=== PATIENT | male | born 1940 | race Caucasian/White ===

== ENCOUNTER 2017-04-06 06:41 | Inpatient (IN) | payer MEDICARE ==
--- NOTE | 2017-03-16 10:11 | HP ---
HISTORY AND PHYSICAL: DATE OF SURGERY: 04/06/17 DATE OF OFFICE VISIT: 03/15/17 SURGEON: Kimi Moore MD PROCEDURE: Left total knee arthroplasty. CHIEF COMPLAINT: Left knee pain. HISTORY OF PRESENT ILLNESS: Mr. Baugh is a 76-year-old gentleman with complaints of left knee pain secondary to advanced osteoarthritis. He has failed conservative management. He has elected to proceed with the left total knee arthroplasty which is scheduled for 04/06/[address] Moore. PAST MEDICAL HISTORY: Hypertension. PAST SURGICAL HISTORY: Right total knee arthroplasty and skin graft from the left upper extremity. CURRENT MEDICATIONS: None. ALLERGIES: None. FAMILY HISTORY: Denies. SOCIAL HISTORY: He is 76-year-old gentleman. He lives with his . He does not smoke or use drugs. He uses occasional alcohol. REVIEW OF SYSTEMS: A complete 14-point review of systems was reviewed with the patient, was all negative and noncontributory PHYSICAL EXAMINATION GENERAL: He is well developed, well nourished, in no acute distress. VITAL SIGNS: He stands 6 feet tall, weighs 212 pounds. His blood pressure is 173/69, his heart rate is 61. HEENT: Normocephalic, atraumatic. NECK: Supple, no palpable lymph nodes. CARDIO: Regular rate and rhythm. Strong S1, S2. PULMONARY: His lungs are clear to auscultation bilaterally. ABDOMEN: Soft, nontender, nondistended. NEUROLOGIC: He is alert and oriented x3. Cranial nerves II through XII are intact. MUSCULOSKELETAL: Left lower extremity, the skin is intact. There are no open wounds or abrasions. He has tenderness over the medial lateral joint line, 15 degrees flexion contracture, 120 degrees flexion. No varus or valgus instability. His lower extremity muscle group strength is intact at 5/5. He has 2+ dorsalis pedis pulses and intact sensation. ASSESSMENT AND PLAN: Mr. Baugh is a 76-year-old gentleman with complaints of left knee pain secondary to advanced osteoarthritis. He has failed conservative management, he has elected to proceed with a left total knee arthroplasty, which is scheduled for 04/06/[address] Moore discussed the risks and benefits of the surgery at today's visit and all of his questions were answered. Coumadin, Percocet, and Colace were sent to his pharmacy for postoperative pain control and DVT prophylaxis. He will see Dr. Moore back in 2 weeks after the surgery. HAI BENTON [id number]/[facility] #: [id number]
[~2017-04-06 06:41] MED LIST: Buffered Lidocaine 0.9% SYRIN* 5 ML/SYR SYRINGE INTRADERM ONE; Famotidine IV* 10 MG/ML 2 ML (20 mg) IV ONE; Metoclopramide TAB* 10 MG PO ONE
[2017-04-06] MEDS ORDERED: Famotidine IV* 10 MG/ML 2 ML (20 mg) ONE (07:08)
[2017-04-06] MEDS ORDERED: Buffered Lidocaine 0.9% SYRIN* 5 ML/SYR SYRINGE ONE (07:08)
[2017-04-06] MEDS ORDERED: ceFAZolin 2 GM PREMIX(*) 2 GM/50 ML BAG IVPB ONE (07:08)
[2017-04-06] MEDS ORDERED: Metoclopramide TAB* 10 MG ONE (07:08)
[2017-04-06] MEDS ORDERED: Propofol* 500 MG/50 ML BTL ONE (07:15)
[2017-04-06] MEDS ORDERED: Ondansetron INJ* 2 MG/ML VIAL ONE (07:15)
[2017-04-06] MEDS ORDERED: fentaNYL* 50 MCG/ML 2 ML VIAL (100 MCG VIAL) ONE (07:15)
[2017-04-06] MEDS ORDERED: Ketorolac INJ* 30 MG/ML 1 ML VIAL ONE (07:15)
[2017-04-06] MEDS ORDERED: Lidocaine 2% PF * 5 ML VIAL ONE (07:15)
[2017-04-06] MEDS ORDERED: Dexamethasone IV* 4 MG/ML 1 ML (4 MG) ONE (07:15)
[2017-04-06] MEDS ORDERED: Propofol* 10 MG/ML 20 ML BTL IV PUSH ONE (07:15)
[2017-04-06] MEDS ORDERED: KETAMINE HCL* 50 MG/ML 10 ML VIAL ONE (07:15)
[2017-04-06] MEDS ORDERED: Midazolam* 1 MG/ML 5 ML VIAL (5 MG) ONE (07:16)
[2017-04-06] MEDS ORDERED: Morphine PF AMP (0.5MG/ML)* 5 MG/10 ML AMP ONE (07:16)
[2017-04-06] MEDS ORDERED: Midazolam* 1 MG/ML 2 ML VIAL (2 MG) ONE (08:15)
[2017-04-06] MEDS ORDERED: Phenylephrine INJ* 10 MG/ML 1 ML VIAL (10 MG) ONE (08:37)
[2017-04-06] MEDS ORDERED: fentaNYL* 50 MCG/ML 2 ML VIAL (100 MCG VIAL) IV PRN (09:21)
[2017-04-06] MEDS ORDERED: diPHENhydraMINE IV* 50 MG/ML 1 ml VIAL (BENADRYL) IV PRN ×2 (09:21→09:30)
[2017-04-06] MEDS ORDERED: Ondansetron INJ* 2 MG/ML VIAL IV PRN ×2 (09:21→09:30)
[2017-04-06] MEDS ORDERED: Phenylephrine INJ* 50 MG in NS 0.9% 250 ML* 245 ML IV PRN (09:21)
[2017-04-06] MEDS ORDERED: Lactated Ringers 500 ml BAG* 500 ML IV PRN (09:30)
[2017-04-06] MEDS ORDERED: oxyCODONE/Acetamin 5/325 MG* TAB PO PRN ×2 (09:30)
[2017-04-06] MEDS ORDERED: EPHEDrine (Pressors)* 50 MG/ML VIAL IV PUSH PRN (09:30)
[2017-04-06] MEDS ORDERED: Naloxone* 0.4 MG/ML 1 ML VIAL IV PRN (09:33)
[2017-04-06] MEDS ORDERED: Ropivacaine* 300 MG in NS 0.9% 250 ML* 240 ML EPIDURAL SCH (10:00)
[2017-04-06] MEDS ORDERED: Acetaminophen TAB* 325 MG PO PRN (10:44)
[2017-04-06] MEDS ORDERED: Polyethylene Glycol 3350* 17 GM PACKET PO PRN (10:44)
[2017-04-06] MEDS ORDERED: Bisacodyl SUPP* 10 MG SUPP PR PRN (10:44)
--- NOTE | 2017-04-06 11:28 | RAD ---
INDICATION: Status post total left knee replacement surgery. COMPARISON: Comparison is made with a prior x-ray study of the knees from February 10, 2017. TECHNIQUE: 2 views of the left knee were obtained. FINDINGS: The patient is status post total left knee replacement surgery. The bones and prostheses are in normal alignment. There is a single surgical drain present anterior to the distal femur. IMPRESSION: STATUS POST TOTAL LEFT KNEE REPLACEMENT SURGERY.
[2017-04-06] MEDS ORDERED: Warfarin TAB(*) 6 MG PO ONE (17:00)
[2017-04-06] MEDS: ceFAZolin VIAL(*) 1 GM in NS 0.9% 50 ML* 50 ML IVPB SCH (17:08)
[2017-04-06] MEDS: Ketorolac INJ* 15 MG/ML 1 ML VIAL IV PRN (17:08)
[2017-04-06] MEDS: Docusate CAP* 100 MG PO SCH (20:34)
[2017-04-07] MEDS: Ketorolac INJ* 15 MG/ML 1 ML VIAL IV PRN (00:33)
[2017-04-07] MEDS: ceFAZolin VIAL(*) 1 GM in NS 0.9% 50 ML* 50 ML IVPB SCH ×2 (00:33→08:37)
[2017-04-07] MEDS ORDERED: oxyCODONE/Acetamin 5/325 MG* TAB PO PRN (06:00)
[2017-04-07] MEDS ORDERED: Ondansetron TAB* 4 MG PO PRN (06:00)
[2017-04-07] MEDS ORDERED: diPHENhydraMINE IV* 50 MG/ML 1 ml VIAL (BENADRYL) IV PRN (06:00)
[2017-04-07] MEDS ORDERED: oxyCODONE TAB* 5 MG TAB PO PRN (06:00)
[2017-04-07] MEDS ORDERED: Morphine INJ* 2 MG/ML 1 ML SYRINGE IV PRN (06:00)
[2017-04-07 06:01] LABS: Hematocrit 37 % (42-52); Hemoglobin 12.5 g/dl (14.0-18.0)
[2017-04-07 06:17] LABS: Calcium 8.8 mg/dL (8.6-10.3); EGFR African American 93.7 (>60); EGFR Non-African American 72.8 (>60); Potassium 4.3 mmol/L (3.5-5.0)
[2017-04-07] MEDS: Enoxaparin(*) 30 MG/0.3 ML SYR SUBCUT SCH (08:10)
[2017-04-07] MEDS: oxyCODONE/Acetamin 5/325 MG* TAB PO PRN ×4 (08:15→20:25)
--- NOTE | 2017-04-07 08:19 | PN ---
Progress Note - Progress Note Date of Service: 04/07/17 SOAP: Subjective: 76 y/o male s/p L TKA by Dr. Moore. VSS, afebrile overnight. Patient feeling well, eager for D/C tomorrow, moving without complaints. Objective: General- Well appearing, sitting in chair, NAD MSK- surgical dressing intact, no drainage noted, sensation intact to light touch, + DF/PF b/l, PT 2+ b/l LEs Vital Signs Temp 97.5 F 04/07/17 08:18 Pulse 65 04/07/17 08:18 Resp 16 04/07/17 10:15 BP 167/56 04/07/17 08:18 Pulse Ox 98 04/07/17 08:18 Intake & Output 04/06/17 04/07/17 04/07/17 18:59 06:59 18:59 Intake Total 2310 1916 600 Output Total 700 650 Balance 1610 1266 600 Weight 211 lb Intake: IV Fluids 1600 926 LR 1600 926 Oral 710 990 600 Output: Urine 700 0 Fox 650 Other: Estimated Void Medium # Bowel Movements 0 # Voids 1 Laboratory Results - last 24 hr 04/07/17 04/07/17 04/07/17 05:37 05:37 05:37 Hgb 12.5 L Hct 37 L INR (Anticoag Therapy) 0.96 Sodium 133 Potassium 4.3 Chloride 102 Carbon Dioxide 28 Anion Gap 3 BUN 20 Creatinine 1.00 Est GFR ( Amer) 93.7 Est GFR (Non-Af Amer) 72.8 BUN/Creatinine Ratio 20.0 Glucose 111 H Calcium 8.8 Assessment: 76 y/o male s/p L TKA by Dr. Moore, stable Plan: - DVT prophylaxis- continue lovenox, 8mg coumadin tonight - Continue PT / OT - Encouraged pulmonary IS due to increased coughing. - Likely D/C to home tomorrow Active Medications Generic Name Dose Route Start Last Admin Trade Name Freq PRN Reason Stop Dose Admin Acetaminophen 650 mg 04/06/17 10:44 Tylenol Tab* PO Q4H PRN PAIN OR TEMPERATURE Amlodipine Besylate 5 mg 04/07/17 09:00 04/07/17 08:37 Norvasc Tab* PO 5 mg QAM MARGARITA Administration Bisacodyl 10 mg 04/06/17 10:44 Dulcolax Supp* [place] DAILY PRN constipation Diphenhydramine HCl 12.5 mg 04/07/17 06:00 Benadryl Iv* IV Q6H PRN PRURITIS Docusate Sodium 100 mg 04/06/17 21:00 04/07/17 08:38 Colace Cap* PO 100 mg BID MARGARITA Administration Enoxaparin Sodium 30 mg 04/07/17 08:00 04/07/17 08:10 Lovenox(*) SUBCUT 30 mg Q24H MARGARITA Administration Lactated Ringer's 1,000 mls @ 100 mls/hr 04/06/17 11:00 04/06/17 22:54 Lactated Ringers 1000 Ml Bag* IV 100 mls/hr PER RATE MARGARITA Administration Lactulose 30 ml 04/06/17 10:44 Lactulose* PO Q6H PRN constipation Magnesium Hydroxide 30 ml 04/06/17 10:44 Milk Of Magnesia Liq* PO Q6H PRN constipation Morphine Sulfate 2 mg 04/07/17 06:00 Morphine Inj (Syringe)* IV Q2H PRN PAIN Ondansetron HCl 4 mg 04/07/17 06:00 Zofran Tab* PO Q6H PRN NAUSEA Oxycodone HCl 10 mg 04/07/17 06:00 Roxycodone Tab* PO Q4H PRN SEVERE PAIN Oxycodone/Acetaminophen 1 tab 04/07/17 06:00 Percocet 5/325 Tab* PO Q3H PRN PAIN - MODERATE Oxycodone/Acetaminophen 2 tab 04/07/17 06:00 04/07/17 08:15 Percocet 5/325 Tab* PO 2 tab Q3H PRN Administration PAIN - MODERATE Pharmacy Profile Note 1 note 04/06/17 17:00 04/06/17 17:12 Coumadin Daily Reminder* FOLLOW UP 1 note 1700 MARGARITA Administration Polyethylene Glycol/Electrolytes 17 gm 04/06/17 10:44 Miralax* PO DAILY PRN Constipation Warfarin Sodium 8 mg 04/07/17 17:00 Coumadin Tab(*) PO 04/07/17 17:01 ONCE@1700 ONE Protocol
[2017-04-07] MEDS: amLODIPine TAB* 5 MG PO SCH (08:37)
[2017-04-07] MEDS: Docusate CAP* 100 MG PO SCH ×2 (08:38→20:26)
--- NOTE | 2017-04-07 16:55 | OP ---
OPERATIVE NOTE: DATE OF OPERATION: 04/05/17 DATE OF : 42 ATTENDING SURGEON: Kimi Moore MD FENDER MECHANIC: HAI Martinez Ms. did help throughout the procedure with preparation of the leg, wound retraction, manipu lation of the knee and wound closure. ANESTHESIOLOGIST: Dr. Rodríguez. ANESTHESIA: Spinal. PRE-OP DIAGNOSIS: Severe endstage degenerative osteoarthritis of the left knee joint. POST-OP DIAGNOSIS: Severe endstage degenerative osteoarthritis of the left knee joint. PROCEDURE PERFORMED: Left total knee arthroplasty. TOURNIQUET TIME: 51 minutes. COMPLICATIONS: None. SPECIMENS: Bone and cartilage from the left knee joint sent to Pathology. ESTIMATED BLOOD LOSS: 250 cc. HARDWARE USED: Cemented [employer] total knee hardware. For the cement, 2 packages of simple x bone cement. For the femur, a size 6 left posterior stabilized Legion femoral component. For the tibia, a size 6 Connie II left tibial baseplate. For the insert, a 9 mm posterior stabilized nuvia cular insert, size 5/6. For the patella, 38 mm, 3 peg all poly patella. BRIEF HISTORY/INDICATIONS: Mr. Baugh is a 76-year-old gentleman with years of increasingly severe left knee pain and varus deformity. Radiograph showed bone-on- bone arthritis with extensive osteop hyte formation. He failed conservative treatment with the antiinflammatories, pain medications, int raarticular injections, and physical therapy. He elected to undergo left total knee arthroplasty du e to continued pain and decreased quality of life. Informed consent was obtained from the patient. He understood the risks of procedure included, but were not limited to bleeding, infection, damage to nearby structures, continued pain, need for further surgery, intraoperative fracture, nerve palsy , hardware failure, loosening, knee stiffness, loss of motion, stroke, heart attack, blood clot, and . INTRAOPERATIVE FINDINGS: Intraoperatively, the patient had significant varus deformity of the knee and flexion contracture prior to the case. He had preoperative range of motion 20 to 110 degrees of flexion. Postoperative range of motion was full extension to 130 degrees of flexion. The patient was found to have a complete loss of cartilage along the patellofemoral and medial joint compartments. DESCRIPTION OF PROCEDURE: Mr. Baugh was identified in the preanesthesia unit. His left lower extre mity was marked as the correct operative side. Informed consent was signed and placed in the chart. The patient was taken to the operating room and placed under spinal anesthesia. A Fox catheter was placed. A tourniquet was placed on the left thigh. Left lower extremity was prepped and draped in the usual sterile fashion. Preop time-out was made to correctly identify the patient side and s ite. Appropriate perioperative antibiotics were given within 1 hour of incision. A tourniquet was inflated until the tourniquet time for this procedure was 51 minutes. A 12 cm midl ine incision was made with the 10 blade and carried down to the extensor mechanism. A new 10 blade was used to make a standard medial parapatellar arthrotomy. Patella was subluxed laterally. Electrocautery was used to subperiosteally elevate soft tissue off the superomedial tibia to the mid sagittal plane. The knee was flexed up. The anterior horn of the lateral meniscus and ACL were sharply released. A drill was used to enter the distal femur. Intra medullary distal femoral cutting guide was pinned in a proper position. The oscillating saw was use d to make the distal femoral cut. External rotation guide was then pinned on the distal femur and t hat femur was sized to a size 6. Size 6 multi-cutting jig was pinned on the distal femur. Oscillat ing saw was used to make the appropriate chamfer cuts. The PCL was completely released and the tibia was subluxed anteriorly. Extramedullary tibial cutting guide was pinned on the proximal tibia. The oscillating saw was used to make the proximal tibial c ut perpendicular to the mechanical access of the tibia. The bone was carefully removed. The knee w as brought out to full extension. The spacer block had good fit. Medial and lateral ligaments were well balanced. Flexion and extension gaps were well balanced. A lamina benefits counselor was placed both m edially and laterally. Any remaining meniscus was carefully removed with electrocautery. Posterior osteophytes were removed with a curved osteotome. A trial size 6 left femur was impacted on to the distal femur. This had good fit and stability. Th e box for the posterior stabilized implant was prepared using a reamer and box cut osteotome. Size 6 trial tibial tray and 9 mm insert trial were placed. The knee was taken through a range of motion and had a full extension to 130 degrees of flexion. There was satisfactory patellofemoral tracking . The patella was everted and 9 mm of patellar bone and cartilage was carefully removed with an oscill ating saw. The patella was sized to a size 38. The 3 peg holes were drilled through the size 38 gu siddharth. A 38 patella trial was placed. The knee was taken through a range of motion and patellofemora l tracking was satisfactory. All trials were carefully removed. The tibia was subluxed anteriorly. Tibia was sized to a size 6. Proximal tibia was prepared using a size 6 keel punch. All bony cut surfaces were copiously irrig ated with sterile saline and dried. Final implants were cemented into place, starting with the tibi a followed by the femur, and last the patella. A 9-mm insert trial was placed while the cement was allowed to fully cured. The knee was brought o ut into full extension. Tourniquet was turned down at 51 minutes. The knee was copiously irrigated . Once the cement was fully cured, the insert trial was removed. Any excess cement was carefully r emoved from around the implant and capsule. Final insert chosen was a 9 mm posterior stabilized art icular insert size 5/6. This was locked into position on the tibial tray. Stability of the insert was checked and rechecked and noted to be stable. The knee was copiously irrigated with sterile saline once again. Extensor mechanism was closed usin g interrupted #1 Vicryls over a median Hemovac drain. The rest of the incision was closed in a laye red fashion using 0 and 2-0 Vicryls. The skin was closed using running 3-0 nylon suture. Sterile X eroform, 4x4s, and Webril to cover the incision. Alpesh wrap and cold pack were placed over this. The patient's anesthesia was reversed without difficulty. He was taken to the PACU in stable condit ion. Intended weightbearing will be weightbearing as tolerated. Intended DVT prophylaxis will be Co umadin with Lovenox bridge. [id number]/[facility] #: [id number]
[2017-04-07] MEDS ORDERED: Warfarin TAB(*) 4 MG PO ONE (17:00)
[2017-04-07] MEDS: Magnesium Hydroxide LIQ* 30 ML UDC PO PRN (20:37)
[2017-04-08] MEDS: oxyCODONE/Acetamin 5/325 MG* TAB PO PRN ×3 (00:52→13:37)
[2017-04-08 06:24] LABS: Hematocrit 33 % (42-52); Hemoglobin 11.1 g/dl (14.0-18.0)
--- NOTE | 2017-04-08 08:38 | PN ---
Progress Note - Progress Note Date of Service: 04/08/17 SOAP: Subjective: pt OOB to chair with no complaints; pain well controlled with po meds Objective: Vital Signs Temp Pulse Resp BP Pulse Ox 97.9 F 56 16 154/50 97 04/08/17 07:22 04/08/17 07:22 04/08/17 07:22 04/08/17 07:22 04/08/17 08:11 Laboratory Last Values Hgb 11.1 g/dl (14.0-18.0) L 04/08/17 06:11 Hct 33 % (42-52) L 04/08/17 06:11 INR (Anticoag Therapy) 1.48 (0.89-1.11) H 04/08/17 06:11 Sodium 133 mmol/L (133-145) 04/07/17 05:37 Potassium 4.3 mmol/L (3.5-5.0) 04/07/17 05:37 Chloride 102 mmol/L (101-111) 04/07/17 05:37 Carbon Dioxide 28 mmol/L (22-32) 04/07/17 05:37 Anion Gap 3 mmol/L (2-11) 04/07/17 05:37 BUN 20 mg/dL (6-24) 04/07/17 05:37 Creatinine 1.00 mg/dL (0.67-1.17) 04/07/17 05:37 Est GFR ( Amer) 93.7 (>60) 04/07/17 05:37 Est GFR (Non-Af Amer) 72.8 (>60) 04/07/17 05:37 BUN/Creatinine Ratio 20.0 (8-20) 04/07/17 05:37 Glucose 111 mg/dL (70-100) H 04/07/17 05:37 Calcium 8.8 mg/dL (8.6-10.3) 04/07/17 05:37 incision: c/d; dressing changed PE:NVI Assessment: s/p left TKA Plan: 1) Continue PT/OT- WBAT 2) continue Lovenox/ Coumadin/ SCD's for DVT prophylaxis 3) Home today; F/U with Dr. Moore in 2 weeks 4) Coumadin dosin mg and Monday night; recheck INR with [facility] Monday
[2017-04-08] MEDS: Docusate CAP* 100 MG PO SCH (08:39)
[2017-04-08] MEDS: amLODIPine TAB* 5 MG PO SCH (08:40)
[2017-04-08] MEDS: Magnesium Hydroxide LIQ* 30 ML UDC PO PRN (08:41)
[2017-04-08] MEDS: Enoxaparin(*) 30 MG/0.3 ML SYR SUBCUT SCH (08:41)
[2017-04-08 12:27] VITALS: BP 145/57
--- NOTE | 2017-04-08 19:50 | DS ---
AMENDED REPORT NOW INCLUDES COSIGNER DESIGNATION - ESIGNED BEFORE ADJUSTMENT DISCHARGE SUMMARY: DATE OF ADMISSION: 04/06/17 DATE OF DISCHARGE: 04/08/17 SURGEON: Kimi Moore MD * (DICTATED BY HAI BENTON) PREOPERATIVE DIAGNOSIS: Severe end-stage degenerative osteoarthritis of the left knee joint. DISCHARGE DIAGNOSIS: Severe end-stage degenerative osteoarthritis of the left knee joint. HISTORY OF PRESENT ILLNESS: Mr. Baugh is a 76-year-old gentleman with complaints of left knee pain secondary to severe end-stage osteoarthritis. He has failed conservative management and elected to proceed with a left total knee arthroplasty. HOSPITAL COURSE: The patient was admitted electively to the hospital on and underwent a left total knee arthroplasty. He tolerated the procedure well with no complications. Postoperatively, he was placed on Lovenox and Coumadin for DVT prophylaxis. On postoperative day 1, his H and H was 12.5 and 37. On postoperative day 2, his H and H was 11.1 and 33. His INR went from 0.96 on postop day 1 to 1.48 on postoperative day 2. At the time of discharge on 04/08/17, he was afebrile, his vital signs were stable. His wound was clean , dry, and healing well. He was discharged to home in stable condition. MEDICATIONS UPON DISCHARGE: 1. Percocet 5/325 one to two tabs every 4 to 6 hours as needed for pain. 2. Colace 100 mg 3 times a day. 3. Norvasc 5 mg daily. PHYSICAL EXAM UPON DISCHARGE: The incision is clean and dry. No signs of infection. His lower extremity muscle group strengths were intact at 5/5. He has 2+ dorsalis pedis pulses and intact sensation and he is ambulating with the aid of a walker. DISCHARGE INSTRUCTIONS: He is discharged to home. He is given a prescription for Percocet 5/325, he can take 1 to 2 tabs every 4 to 6 hours as needed for pain. He was also given Colace for postoperative constipation, he can take 1 tab 2 to 3 times daily. His INR at the time of discharge was 1.48. His Coumadin dosing is 8 mg and 8 mg Monday night. [facility] will recheck his INR on Monday. He will begin physical therapy next week. His weightbearing as tolerated. He will follow up with Dr. Moore in her clinic in 2 weeks. He was asked to call us sooner if he has any questions or concerns. HAI BENTON [id number]/[facility] #: [id number] TODD
== END 2017-04-08 14:00 | disposition home health service (06) | DRG 470 ==
LOC: AA 06:41 → SSU 12:06
PROVIDERS: ADMIT Orthopaedic Surgery Adult Reconstructive Orthopaedic Surgery; ATTEND Orthopaedic Surgery Adult Reconstructive Orthopaedic Surgery
PROC: 0SRD0J9 Replacement of Left Knee Joint with Synthetic Substitute, Cemented, Open Approach (ICD-10-PCS; principal; 2017-04-06 08:15)
DX: M17.12 Unilateral primary osteoarthritis, left knee (principal); I10 Essential (primary) hypertension; Z96.651 Presence of right artificial knee joint; M21.162 Varus deformity, not elsewhere classified, left knee; M25.762 Osteophyte, left knee; Z72.89 Other problems related to lifestyle; Z87.891 Personal history of nicotine dependence
CPT/HCPCS: 36415; 80048; 85014; 85018; 85610; 94760; A9270-GY; C1776; J0690; J1100; J1650; J1885; J2250; J2405; J2704; J2795; J3010

== ENCOUNTER 2019-10-23 11:25 | Emergency (ER) | payer MEDICARE ==
--- OUTSIDE RECORDS SUMMARY | 2019-10-23 11:34 | XMS REPORT | Continuity of Care Document ---
:1940 External Reference #:[id number] Author Name Micah Regan N.P. Address [address] [place] [id number] Problems Active Problems Provider Date Essential hypertension Micah Regan N.Petey Onset: 11/11/2015 Social History Type Date Description Comments Sex Unknown ETOH Use Currently consumes alcohol Tobacco Use Start: Unknown Patient has never smoked Smoking Status Reviewed: 10/03/19 Patient has never smoked Allergies, Adverse Reactions, Alerts Description No Known Drug Allergies Medications Active Medications SIG Qnty Indications Ordering Provider Date Permethrin apply from chin 60gm Micah Regan, 10/03/2019 5% Cream down as directed N.P. Prednisone 2 by mouth every 14tabs Micah Regan, 10/03/2019 20mg Tablets day x 7 days N.P. Hydroxyzine Pamoate 1 by mouth twice 20caps Micah Regan, 06/20/2019 a day N.P. 50mg Capsules Losartan 1 by mouth every 90tabs Micah Regan, 11/02/2018 Potassium/Hydrochloro day N.P. thiazide 50-12.5mg Tablets History Medications Aspriin Jass, 06/12/2019 - Micah, N.P. 06/12/2019 Betamethasone Dipropionate apply to area of 45gm Jass, 06/12/2019 - 0.05% rash on neck and Micah, N.P. 06/20/2019 Cream back twice a day Prednisone 2 by mouth every 14tabs Jass, 06/12/2019 - 20mg Tablets day x 7 days Micah, N.P. 09/16/2019 Lidocaine Plus Jass, 06/12/2019 - 4% Cream Micah N.P. 06/12/2019 Methylprednisolone take as directed 21units Jass, 06/05/2019 - 4mg TBPK Micah, N.P. 06/12/2019 Loratadine 1 by mouth every 30caps Jass, 06/05/2019 - 10mg Capsules morning Micah N.P. 06/20/2019 Immunizations CPT Code Status Date Vaccine Lot # [id number] Given 05/11/2018 Tdap (Adacel) Ages 7 And Above Only [id number] Refused 06/29/2018 Shingrix (Shingles) Zoster Vaccine HZV, Recombinant , Subunit, Adj [id number] Refused 06/29/2018 Influenza Vac, Quadrivalent, Split, 0.5mL Dosage, Im Use [id number] Refused 10/05/2017 Zoster (Zostavax) [id number] Refused 10/05/2017 Influenza Vac, Quadrivalent, Split, 0.5mL Dosage, Im Use [id number] Refused 10/05/2017 Prevnar 13 Pneumococal Conjugate Vaccine Vital Signs Date Vital Result Comment 10/15/2019 10:32am Body Temperature 97.9 F Weight 212.00 lb Heart Rate 71 /min BP Systolic 160 mmHg BP Diastolic 88 mmHg O2 % BldC Oximetry 98 % 10/03/2019 10:59am Body Temperature 97.5 F Weight 209.00 lb Heart Rate 62 /min BP Systolic 158 mmHg Manual BP Diastolic 72 mmHg Manual Height 70 inches 5'10" O2 % BldC Oximetry 99 % BMI (Body Mass Index) 30.0 kg/m2 Results Test Acquired Date Facility Test Result H/L Range Note Comprehensive Met 05/08/2019 [facility] Sodium 135 mmol/L 135-146 1, 2 [facility] Potassium 4.4 mmol/L 3.5-5.2 Chloride# 95 mmol/L Low 97-110 3 Carbon Dioxide 28 mmol/L 24-34 Calcium 9.7 mg/dL 8.5-10.5 4 Glucose 170 mg/dL High 70-105 BUN 17 mg/dL 6-26 Creatinine 1.1 mg/dL 0.5-1.4 Total Protein 6.6 g/dL 6.0-8.0 Albumin 4.2 g/dL 3.6-4.9 Globulin 2.4 g/dL 2.0-3.5 A/G Ratio 1.8 Ratio 1.0-2.2 Total Bilirubin 0.4 mg/dL 0.1-1.3 Alkaline Phosphatase 86 U/L 24-140 Alt 13 U/L 3-42 Ast 16 U/L 8-42 Anion Gap 12 mmol/L 5-15 5 Female Egfr 47 Low >60 6 Male Egfr 63 >60 7 Lipid 05/08/2019 [facility] Cholesterol 165 mg/dL 50-199 Triglycerides 175 mg/dL 30-200 HDL 59 mg/dL 29-71 8 Chol/ HDL Ratio 2.8 ratio Low 4.0-6.7 VLDL 35 mg/dL High 2-29 LDL (Calc) 71 mg/dL 20-99 9 Laboratory test finding 05/08/2019 [facility] PSA 0.490 ng/mL 0.000-4.000 10 1 This sample is drawn by:DL/TELECOMMUNICATIONS ENGINEER 2 Updated reference range on new analyzer 3 Updated reference range on new analyzer 4 Updated reference range 01-09-2019 5 Updated Reference Range 6 Concerning GFR Guidelines for Americans: Normal function or mild renal disease, if clinically at risk: >/= 60 mL/min Moderately decreased: 30-59 Severely decreased: 15-29 Renal failure: <15 There is reduced accuracy above 60ml/min/1.73 m squared, but the numeric value may be clinically useful in the near 60 range 7 Concerning GFR Guidelines: Normal function or mild renal disease, if clinically at risk: >/= 60 mL/min Moderately decreased: 30-59 Severely decreased: 15-29 Renal failure: <15 There is reduced accuracy above 60ml/min/1.73 m squared, but the numeric value may be clinically useful in the near 60 range Glomerular Filtration Rate (GFR) is estimated based on the CKD-EPI equation, which assumes a steady state for creatinine as recommended by the National Kidney Disease Education Program in conjunction with the National Institutes of Health and the National Kidney Foundation. Clinical conditions in which it may be necessary to measure GFR by using clearance methods include extremes of age and body size, severe malnutrition or obesity, diseases of skeletal muscle, paraplegia or quadriplegia, vegetarian diet, rapidly changing kidney function, and calculation of the dose of potentially toxic drugs that are excreted by the kidneys. 8 Per NCEP ATP III Guidelines: Results lower than 40 mg/dL are suggestive of increased risk for coronary artery disease. Results > or = to 60 mg/dL are considered a negative risk factor. 9 Per NCEP ATP III Guidelines: Normal Population <130 Patients with medical conditions: CHD/DM Optimal: <100 Borderline high: 130-159 High: 160-189 Very high: >189 10 Beginning 11/06/06 PSA values assayed at [facility] uses chemiluminescence methodology manufactured by Rosalio dakick for use on the DXI analyzer. Values obtained with different assay methods or kits can not be used interchangeably. Serum PSA measurement is not an absolute test for malignancy. The PSA value should be used in conjunction with information available from clinical evaluation and other diagnostic procedures. Procedures Date Code Description Status 10/03/2019 10852 Admin Patient Focused Health Risk Assessment Instrument Completed Medical Devices Description No Information Available Encounters Type Date Location Provider Dx Diagnosis Office Visit 10/03/2019 Micah Ramirez, Z00.01 Encounter for 11:00a N.P. general adult medical exam w abnormal findings B86 Scabies I10 Essential (primary) hypertension Office Visit 06/20/2019 1:00p Micah Ramirez, R21 Rash and other N.P. nonspecific skin eruption Office Visit 06/12/2019 11:30a Micah Ramirez, R21 Rash and other N.P. nonspecific skin eruption Office Visit 06/05/2019 9:30a Micah Ramirez, R21 Rash and other N.P. nonspecific skin eruption Office Visit 05/08/2019 10:30a Micah Ramirez, I10 Essential ( primary) N.P. hypertension E78.2 Mixed hyperlipidemia Z12.5 Encounter for screening for malignant neoplasm of prostate Z00.00 Encntr for general adult medical exam w/o abnormal findings Z13.31 Encounter for screening for depression Assessments Date Code Description Provider 10/15/2019 R21 Rash and other nonspecific skin eruption Micah Regan, N.P. 10/03/2019 Z00.01 Encounter for general adult medical Micah Regan, N.P. examination with abnormal findings 10/03/2019 B86 Scabies Micah Regan, N.P. 10/03/2019 I10 Essential (primary) hypertension Micah Regan, N.P. 06/20/2019 R21 Rash and other nonspecific skin eruption Micah Regan, N.P. 06/12/2019 R21 Rash and other nonspecific skin eruption Micah Regan N.P. 06/05/2019 R21 Rash and other nonspecific skin eruption Micah Regan N.P. 05/08/2019 I10 Essential (primary) hypertension Micah Regan N.P. 05/08/2019 E78.2 Mixed hyperlipidemia Micah Regan N.PTatum 05/08/2019 Z12.5 Encounter for screening for malignant Micah Regan N.PTatum neoplasm of prostate 05/08/2019 Z00.00 Encounter for general adult medical Micah Regan N.Petey examination without abnormal findings 05/08/2019 Z13.31 Encounter for screening for depression Micah Regan N.P. 05/08/2019 I10 Essential (primary) hypertension [facility] 05/08/2019 E78.2 Mixed hyperlipidemia [facility] 05/08/2019 Z12.5 Encounter for screening for malignant [facility] neoplasm of prostate Plan of Treatment 10/15/2019 - Micah Regan N.P.R21 Rash and other nonspecific skin eruptionComments:persistent pruritic rashpatient agrees to follow-up dermatology for further evalAllReferral:Dhruv Carl MD, Dermatology/[facility] Functional Status Description No Information Available Mental Status Description No Information Available Referrals Refer to Reason for Referral Status Appt Date Dhruv Carl MD perisitent rash not responsive to 2-3 months Created 00/00 /0000 treatment [address] [place] [address] [phone]
--- OUTSIDE RECORDS SUMMARY | 2019-10-23 11:34 | XMS REPORT | Continuity of Care Document ---
:1940 External Reference #:[id number] Author Name Micah Regan N.P. Address [address] [place] [id number] Problems Active Problems Provider Date Essential hypertension [...] CPT Code Status Date Vaccine Lot # [id number] Given 05/11/2018 Tdap (Adacel) Ages 7 And Above Only 14165 Refused 06/29/2018 Shingrix (Shingles) Zoster Vaccine HZV, Recombinant , Subunit, Adj [id number] Refused 06/29/2018 Influenza Vac, Quadrivalent, Split, 0.5mL Dosage, Im Use [id number] Refused 10/05/2017 Zoster (Zostavax) [id number] Refused 10/05/2017 Influenza Vac, Quadrivalent, Split, 0.5mL Dosage, Im Use 43054 Refused 10/05/2017 Prevnar 13 Pneumococal Conjugate Vaccine Vital Signs Date Vital Result Comment 10/03/2019 10:59am Body Temperature 97.5 F Weight 209.00 lb Heart Rate 62 /min BP Systolic 158 mmHg Manual BP Diastolic 72 mmHg Manual Height 70 inches 5'10" O2 % BldC Oximetry 99 % BMI (Body Mass Index) 30.0 kg/m2 06/20/2019 12:54pm Body Temperature 98.8 F Weight 213.00 lb Heart Rate 61 /min BP Systolic 144 mmHg BP Diastolic 70 mmHg O2 % BldC Oximetry 95 % Results Test Acquired Date Facility Test Result [...] 0.000-4.000 10 1 This sample is drawn by:DL/ALLERGY AND IMMUNOLOGY SPECIALIST 2 Updated reference range on new analyzer [...] 10 Beginning 11/06/06 PSA values assayed at [facility] uses chemiluminescence methodology manufactured by Rosalio Saberr for use on the DXI analyzer. Values obtained with different assay methods or kits can not be used interchangeably. Serum PSA measurement is not an absolute test for malignancy. The PSA value should be used in conjunction with information available from clinical evaluation and other diagnostic procedures. Procedures Date Code Description Status 10/03/2019 20416 Admin Patient Focused Health Risk Assessment Instrument Completed Medical Devices Description No Information Available Encounters Type Date Location Provider Dx Diagnosis Office Visit 06/20/2019 Micah Ramirez, Kristina Rash and other 1:00p N.P. nonspecific skin eruption Office Visit 06/12/2019 Micah Ramirez R21 Rash and other 11:30a N.P. nonspecific skin eruption Office Visit 06/05/2019 Micah Ramirez R21 Rash and other 9:30a N.P. nonspecific skin eruption Office Visit 05/08/2019 Micah Ramirez, I10 Essential (primary) 10:30a N.P. hypertension E78.2 Mixed hyperlipidemia Z12.5 Encounter for screening for malignant neoplasm of prostate Z00.00 Encntr for general adult medical exam w/o abnormal findings Z13.31 Encounter for screening for depression Assessments Date Code Description Provider 10/03/2019 Z00.01 Encounter for general adult medical Micah Regan, N.P. examination with abnormal findings 10/03/2019 B86 Scabies Micah Regan, N.P. 10/03/2019 I10 Essential (primary) hypertension Micah Regan, N.P. 06/20/2019 R21 Rash and other nonspecific skin eruption Micah Regan, N.P. 06/12/2019 R21 Rash and other nonspecific skin eruption Micah Regan, N.P. 06/05/2019 R21 Rash and other nonspecific skin eruption Micah Regan, N.P. 05/08/2019 I10 Essential (primary) hypertension Micah Regan, N.P. 05/08/2019 E78.2 Mixed hyperlipidemia Micah Regan, N.P. 05/08/2019 Z12.5 Encounter for screening for malignant Micah Regan N.P. neoplasm of prostate 05/08/2019 Z00.00 Encounter for general adult medical Micah Regan N.P. examination without abnormal findings 05/08/2019 Z13.31 Encounter for screening for depression Micah Regan N.P. 05/08/2019 I10 Essential (primary) hypertension [facility] 05/08/2019 E78.2 Mixed hyperlipidemia [facility] 05/08/2019 Z12.5 Encounter for screening for malignant [facility] neoplasm of prostate Plan of Treatment 10/03/2019 - Micah Regan N.P.Z00.01 Encounter for general adult medical examination with abnormal findingsComments:well apearing except for pruritic rashhealth promotion discussed at length including exercise,propernutrition, sleep hygiene, adequate fluid intake, stress relief, safety and routine health sceening including skin, testicular/breast, and routine office PE's.B86 ScabiesComments:patient would like to try elimite application before Derm referralthoroughly discussed with patientand how to use elimite cream and written instructions provided to take homehe will report reults 1 weekI10 Essential (primary) hypertensionComments: stable with current meds. Cont same pt inst to monitor B/P at home/work 2-3 times per week and report abngoal: < 140/90AllNew Medication:Permethrin 5 % - apply from chin down as directedPrednisone 20 mg - 2 by mouth every day x 7 days Functional Status Description No Information Available Mental Status Description No Information Available Referrals Description No Information Available
[2019-10-23 12:19] VITALS: BP 153/60
--- NOTE | 2019-10-23 12:49 | UC ---
Skin Complaint HPI - HPI Summary HPI Summary: Pt presents with c/o gradual onset of itchy rash that is diffuse over body. Pt state that rash began in June 2019 and has been seen by pcp and given medication but has run out. Pt states rash is worsening. Pt describes rash as raised bmpl, mildly erythematous, some blisters on feet and left inner thigh. Pt states his PCP gave him medication that improved rash and is scheduled to see director of public health in 2 weeks. - History of Current Complaint Chief Complaint: UCRash Time Seen by Provider: 10/23/19 12:42 Stated Complaint: RASH ALL OVER BODY Hx Obtained From: Patient Onset/Duration: Gradual Onset, Lasting Weeks, Still Present Skin Exposure Onset/Duration: Weeks Ago Timing: Constant Onset Severity: Mild Current Severity: Moderate Pain Intensity: 0 Location: Diffuse Character: Swelling, Pruritus, Hives, Redness, Raised Aggravating Factor(s): Touch Alleviating Factor(s): Nothing Associated Signs & Symptoms: Positive: Rash Related History: Possible Reaction to: Environmental Exposure - Allergy/Home Medications Allergies/Adverse Reactions: Allergies Allergy/AdvReac Type Severity Reaction Status Date / Time No Known Allergies Allergy Verified 10/23/19 12:11 Home Medications: Home Medications Hydrocortisone 1% CREAM* [Hytone Cream 1%*] 1 applic TOPICAL QID PRN 10/23/19 [ History Confirmed 10/23/19] Losartan/Hydrochlorothiazide [Losartan-Hctz 50-12.5 mg Tab] 1 tab PO DAILY 10/23 [History Confirmed 10/23/19] Magnesium Oxide TAB* [MagOx 400 TAB*] 400 mg PO DAILY 10/23/19 [History Confirmed 10/23/19] PMH/Surg Hx/FS Hx/Imm Hx Previously Healthy: Yes - Surgical History Surgical History: Yes Surgery Procedure, Year, and Place: Left TKA, 2016, [place]; Right TKA, 2015, [place]; Right Carpal Tunnel Release, 2015, [place]; Left Arm Skin Grafting, 2012 - Family History Known Family History: Positive: Cardiac Disease - Social History Occupation: Retired Lives: With Family Alcohol Use: 1 beer daily Alcohol Amount: 2 beers Substance Use Type: None Smoking Status (MU): Former Smoker Type: Cigarettes Amount Used/How Often: 1 PACK A DAY10+ YEARS Length of Time of Smoking/Using Tobacco: 1 PPD x 35 Years Have You Smoked in the Last Year: No When Did the Patient Quit Smoking/Using Tobacco: ~1989 - Immunization History Most Recent Influenza Vaccination: HAS NOT HAD Most Recent Tetanus Shot: UNSURE Most Recent Pneumonia Vaccination: HAS NOT HAD Vaccination Up to Date: No Review of Systems All Other Systems Reviewed And Are Negative: Yes Constitutional: Positive: Negative Skin: Positive: Rash Eyes: Positive: Negative ENT: Positive: Negative Respiratory: Positive: Negative Cardiovascular: Positive: Negative Gastrointestinal: Positive: Negative Genitourinary: Positive: Negative Motor: Positive: Negative Neurovascular: Positive: Negative Musculoskeletal: Positive: Negative Neurological/Mental Status: Positive: Negative Psychological: Positive: Negative Is Patient Immunocompromised?: No Physical Exam Triage Information Reviewed: Yes Appearance: Well-Appearing Vital Signs: Initial Vital Signs Temp 98.2 F 10/23/19 12:10 Pulse 60 10/23/19 12:10 Resp 16 10/23/19 12:10 BP 153/60 10/23/19 12:10 Pulse Ox 99 10/23/19 12:10 Vital Signs Reviewed: Yes Eye Exam: Normal ENT Exam: Normal Dental: Positive: Other: - missing teeth Neck exam: Normal Respiratory Exam: Normal Cardiovascular Exam: Normal Musculoskeletal Exam: Normal Neurological Exam: Normal Psychological Exam: Normal Skin: Positive: Rashes - diffusely scattered, uritcaria like, right hand mild swelling Course/Dx - Differential Diagnoses - Skin Complaint Differential Diagnoses: Allergic Reaction, Contact Dermatitis, Urticaria - Diagnoses Provider Diagnosis: Urticaria of unknown origin Discharge ED - Sign-Out/Discharge Documenting (check all that apply): Patient Departure All imaging exams completed and their final reports reviewed: No Studies - Discharge Plan Condition: Stable Disposition: HOME Prescriptions: Cetirizine* [ZyrTEC 10 MG TAB*] 10 mg PO BEDTIME #14 tab Fexofenadine (NF) [Lydia 180 (NF)] 180 mg PO DAILY #14 tab predniSONE 20 mg TAB [Deltasone 20 MG TAB*] 60 mg PO DAILY #18 tab Patient Education Materials: Urticaria (ED) Referrals: Micah Regan NP [Primary Care Provider] - If Needed - Billing Disposition and Condition Condition: STABLE Disposition: Home
== END 2019-10-23 12:57 | disposition home or self-care (01) ==
LOC: UCCORT 11:25
DX: L50.9 Urticaria, unspecified (principal); Z87.891 Personal history of nicotine dependence
CPT/HCPCS: 99212; G0463